=== PATIENT | female | born 1955 | race Caucasian/White ===

== ENCOUNTER → 2016-12-21 | Outpatient (CLI) | payer BC | LOC: FIMAGING 07:16 | DX: Z12.31 Encounter for screening mammogram for malignant neoplasm of breast (principal); N85.9 Noninflammatory disorder of uterus, unspecified; D25.2 Subserosal leiomyoma of uterus | CPT/HCPCS: G0202 ==

== ENCOUNTER → 2017-08-30 | Outpatient (CLI) | payer BC ==
[~2017-08-30] MED LIST: REGADENOSON 0.4 MG/5 ML SYR IVP ONE
--- NOTE | 2017-08-31 00:30 | CPR ---
[f rep st] NONINVASIVE CARDIAC PROCEDURE REPORT Lexiscan injection of Lexiscan MPI study INDICATION FOR STRESS TESTING: Testing, shortness of breath, abnormal electrocardiogram, unable to r un on treadmill, paroxysmal atrial fibrillation, and presurgical evaluation. PRE: After obtaining informed consent, ensuring patient's n.p.o. status of caffeine for greater than 12 hours, the patient was placed on electrocardiogram, showing sinus bradycardia with ventricular ra te of 56 beats per minute, normal axis, nonspecific T-wave abnormalities noted in lateral leads. Pat ient denies of chest pain, shortness of breath, or symptoms suggesting of ischemia. Blood pressure w as 122/70, saturation 98%. INJECTION: Patient was given Lexiscan slow IV push, followed by nuclear isotope. Patient did report within 1 minute of injection of mild shortness of breath with chest pressure. Patient was noted to have mild T-wave inversion within 3 minutes in V4 through V6. She was given caffeinated beverage, an d symptoms did subside. Vital signs remained stable. Within 5 minutes post injection, all symptoms subsided, her vital signs remained stable. EKG returned to baseline. IMPRESSION: A 61-year-old female being evaluated for total hip, noted to have abnormal electrocardio gram and found to be in paroxysmal atrial fibrillation during her next office visit to Cardiology. T conchis, has converted back to sinus rhythm, noted to have nonspecific T-wave abnormalities in lateral l adelina. With Lexiscan injection, noted T-wave inversion in V3 through 6 within 3 minutes, which return ed back to normal. Patient did report some mild chest pressure with injection, but did subside. Cur rently, her vital signs are stable, reporting no symptoms suggesting cardiac ischemia. Final blood p ressure is 108/62, heart rate 79, saturation 96%. She will finish poststress imaging in [facility] at this time. /[id number]/MODL
== END ==
LOC: FIMAGING 12:42
PROVIDERS: ATTEND Nurse Practitioner Family
DX: R06.02 Shortness of breath (principal); R94.39 Abnormal result of other cardiovascular function study
CPT/HCPCS: J2785

== ENCOUNTER → 2017-09-03 | Outpatient (CLI) | payer BC | LOC: FIMAGING 08:48 | PROVIDERS: ATTEND Orthopaedic Surgery | DX: Z01.818 Encounter for other preprocedural examination (principal); M16.11 Unilateral primary osteoarthritis, right hip; M25.551 Pain in right hip ==

== ENCOUNTER 2017-09-13 05:52 | Inpatient (IN) | payer BC ==
[~2017-09-13 05:52] MED LIST changes: +ACETAMINOPHEN 325 MG TAB PO ONE; +DEXAMETHASONE 4 MG/ML VIAL IVP ONE; +FAMOTIDINE 20 MG TAB PO ONE; +POVIDONE-IODINE 20 ML in SODIUM CL IRRIG SOLUTION 500 ML IRR ONE; -REGADENOSON 0.4 MG/5 ML SYR IVP ONE; +ROPIVACAINE 0.2% 80 MG, EPINEPHrine 0.2 MG, KETOROLAC TROMETHAMINE 30 MG in SYRINGE 0 ML IU ONE; +TRANEXAMIC ACID 1,000 MG in NS 100 ML IV ONE; +ceFAZolin 2 GM/SWFI 2 GM/20 ML SYR IVP ONE
[2017-09-13] MEDS ORDERED: POVIDONE-IODINE 20 ML in SODIUM CL IRRIG SOLUTION 500 ML IRR ONE (06:00)
[2017-09-13] MEDS ORDERED: ROPIVACAINE 0.2% 80 MG, EPINEPHrine 0.2 MG, KETOROLAC TROMETHAMINE 30 MG in SYRINGE 0 ML IU ONE (06:00)
[2017-09-13] MEDS ORDERED: TRANEXAMIC ACID 1,000 MG in NS 100 ML IV ONE (06:00)
[2017-09-13] MEDS ORDERED: FAMOTIDINE 20 MG TAB PO ONE (06:10)
[2017-09-13] MEDS ORDERED: DEXAMETHASONE 4 MG/ML VIAL IVP ONE (06:10)
[2017-09-13] MEDS ORDERED: ACETAMINOPHEN 325 MG TAB PO ONE (06:10)
[2017-09-13] MEDS ORDERED: ceFAZolin 2 GM/SWFI 2 GM/20 ML SYR IVP ONE (06:10)
[2017-09-13] MEDS ORDERED: LR 1,000 ML IV ONE (06:14)
[2017-09-13] MEDS ORDERED: BUPIVACAINE 0.5% 30 ML SDV ONE (06:54)
[2017-09-13] MEDS ORDERED: BACITRACIN 50,000 UNITS/10 ML SYR IRR ONE (06:56)
[2017-09-13] MEDS ORDERED: POLYMYXIN B SULFATE 500,000 UNIT/10 ML SYR IRR ONE (06:56)
--- NOTE | 2017-09-13 07:06 | PDHPUP ---
History & Physical Update H&P update statement: This history and physical update is based on an assessment of the patient which was completed after admission or registration (within 24 hours), but prior to the surgery/procedure. H&P update: H&P reviewed & patient examined, no change in patient's condition since H&P completed
--- NOTE | 2017-09-13 07:15 | PDANEPAE ---
ANE History of Present Illness djd R hip s/f R AMA ANE Past Medical History - Cardiovascular History Hx Hypertension: Yes Hx Arrhythmias: Yes Hx Chest Pain: No Hx Coronary Artery / Peripheral Vascular Disease: No Hx CHF / Valvular Disease: No Hx Palpitations: No Cardiovascular History Comment: pt to see cards 08/30 &. a-fib, new onset. ECHO normal. A-fib stable on metoprolol. 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 - Neurologic History Hx Cerebrovascular Accident: No Hx Seizures: No Hx Dementia: No - Endocrine History Hx Diabetes: No - Renal History Hx Renal Disorders: No - Liver History Hx Hepatic Disorders: No - Neurological & Psychiatric Hx Hx Neurological and Psychiatric Disorders: Yes Neurological / Psychiatric History Comment: depression - Cancer History Hx Cancer: Yes Cancer History Comment: skin cancer - Congenital Disorder History Hx Congenital Disorders: Yes Congenital History Comment: benign familial tremor - GI History Hx Gastrointestinal Disorders: Yes Gastrointestinal History Comment: reflux,barretts esophagus - Chronic Pain History Chronic Pain: Yes (R shoulder and neck spasms) - Surgical History Prior Surgeries: cervix opening sx. colonoscopy and EGD ANE Review of Systems Review of Systems: - Exercise capacity METS (RN): 4 METS ANE Patient History - Allergies Allergies/Adverse Reactions: codeine [Codeine] Allergy (Verified 08/20/17 16:02) Vomiting Sulfa (Sulfonamide Antibiotics) Allergy (Verified 08/20/17 16:02) Depression Anesthetics - Amide Type Adverse Reaction (Mild, Verified 09/13/17 07:14) Loss short term memory for ~3 mon - Home Medications Home Medications: Compounded T3/T4 5/20mcg 1 ea PO DAILY@08/20/17 [Last Taken Unknown] Diazepam [Valium 5 MG (*)] 5 mg PO DAILY PRN 08/20/17 [Last Taken Unknown] Glucosamine Sulfate [Glucosamine Sulfate 500 MG (*)] 500 mg PO DAILY@ [Last Taken Unknown] Herbals/Supplements -Info Only 1 ea PO DAILY 08/20/17 [Last Taken Unknown] Ibuprofen [Motrin (*)] 600 mg PO HS PRN 08/20/17 [Last Taken Unknown] Magnesium Carb/Aluminum Hydrox [Gaviscon Es Tablet Chew] 1 each PO DAILY PRN 01/01 [Last Taken Unknown] Progesterone 150mg 150 mg PO HS 08/20/17 [Last Taken Unknown] Progesterone 50mg 50 mg PO DAILY@06 08/20/17 [Last Taken Unknown] Propranolol HCl [Inderal 10mg (*)] 10 mg PO HS 08/20/17 [Last Taken Unknown] Testosterone 1mg 1 mg PO DAILY@,08/20/17 [Last Taken Unknown] Vilazodone HCl [Viibryd] 30 mg PO DAILY 08/20/17 [Last Taken Unknown] Zaleplon [Sonata] 10 mg PO HS PRN 08/20/17 [Last Taken Unknown] buPROPion SR [Wellbutrin 150mg SR (*)] 150 mg PO DAILY 08/20/17 [Last Taken Unknown] - NPO status NPO Status: no food or drink >8 hours NPO Since - Liquids (Date): 09/13/17 NPO Since - Liquids (Time): 04:30 NPO Since - Solids (Date): 09/12/17 NPO Since - Solids (Time): 17:30 - Anes Hx Anes Hx: post operative cognitive dysfunction (propofol okay) - Smoking Hx Smoking Status: Former smoker Marijuana use: No - Alcohol Use Alcohol Use: Occasionally - Family Anes Hx Family Anes Hx: none Family Hx Anesthesia Complications: none ANE Labs/Vital Signs - Labs - CBC WBC: reviewed and okay - Vital Signs Blood Pressure: 96/58 Heart Rate: 55 Respiratory Rate: 14 O2 Sat (%): 94 Height: 167.64 cm Weight: 71.214 kg ANE Physical Exam - Airway Neck exam: FROM Mallampati Score: Class 2 Mouth exam: normal dental/mouth exam - Cardiovascular Cardiovascular: regular rate and rhythym - ASA Status ASA Status: III ANE Anesthesia Plan Anesthesia Plan: MAC, spinal
[2017-09-13] MEDS ORDERED: fentaNYL 100 MCG/2 ML INJ ONE ×2 (07:32→11:08)
[2017-09-13] MEDS ORDERED: PROPOFOL/EMULSION 500 MG/50 ML BOTTLE IV ONE ×3 (07:36→09:05)
[2017-09-13] MEDS ORDERED: DEXAMETHASONE 4 MG/ML VIAL ONE (07:47)
[2017-09-13] MEDS ORDERED: PHENYLEPHRINE HCL 100 MCG/ML SYR ONE (08:11)
[2017-09-13] MEDS ORDERED: PROPOFOL 200 MG/20 ML VIAL ONE ×3 (09:52→10:40)
[2017-09-13] MEDS ORDERED: BISACODYL 10 MG SUPP PR PRN (11:03)
[2017-09-13] MEDS ORDERED: LACTULOSE 20 GM/30 ML UDCUP PO PRN (11:03)
[2017-09-13] MEDS ORDERED: ONDANSETRON DISINTEGRATING 4 MG TAB PO PRN (11:03)
[2017-09-13] MEDS ORDERED: TEMAZEPAM 15 MG CAP PO PRN (11:03)
[2017-09-13] MEDS ORDERED: POLYETHYLENE GLYCOL 3350 17 GM PKT PO PRN (11:03)
[2017-09-13] MEDS ORDERED: MAGNESIUM HYDROXIDE 30 ML UDCUP PO PRN (11:03)
[2017-09-13] MEDS ORDERED: CYCLOBENZAPRINE 10 MG TAB PO PRN (11:03)
[2017-09-13] MEDS ORDERED: DIPHENOXYLATE/ATROPINE LOMOTIL 1 TAB PO PRN (11:03)
[2017-09-13] MEDS ORDERED: ALBUTEROL 3 ML DEYVIAL IH PRN (11:05)
[2017-09-13] MEDS ORDERED: PROMETHAZINE HCL 25 MG/ML INJ IVP PRN (11:05)
[2017-09-13] MEDS ORDERED: ACETAMINOPHEN 500 MG TAB PO PRN (11:05)
[2017-09-13] MEDS ORDERED: NALOXONE HCL 0.4 MG/ML INJ IVP PRN (11:05)
[2017-09-13] MEDS ORDERED: DEXAMETHASONE 4 MG/ML VIAL IVP PRN (11:05)
[2017-09-13] MEDS ORDERED: HYDROmorphONE/DILAUDID 1 MG/ML INJ IVP PRN (11:05)
[2017-09-13] MEDS ORDERED: PHENYLEPHRINE HCL 100 MCG/ML SYR IVP PRN (11:05)
[2017-09-13] MEDS ORDERED: ONDANSETRON 4 MG/2 ML VIAL IVP PRN (11:05)
[2017-09-13] MEDS ORDERED: MEPERIDINE 25 MG/ML SYR IVP PRN (11:05)
[2017-09-13] MEDS ORDERED: HYDROCODONE/APAP 5/325 TAB PO PRN (11:05)
[2017-09-13] MEDS ORDERED: OXYCODONE/APAP 5/325 TAB PO PRN (11:05)
[2017-09-13] MEDS ORDERED: LABETALOL HCL 5 MG/ML 20 ML MDV IVP PRN (11:05)
[2017-09-13] MEDS ORDERED: LR 500 ML IV PRN (11:05)
[2017-09-13] MEDS ORDERED: METOCLOPRAMIDE 10 MG/2 ML VIAL IVP PRN (11:05)
--- NOTE | 2017-09-13 11:06 | POSTANESTH ---
Post Anesthetic Evaluation Cardiovascular Status: Normal, Stable Respiratory Status: Normal, Stable Level of Consciousness/Mental Status: Can Participate in Eval Pain Control: Adequate, Prn Tx Ordered Nausea/Vomiting Control: Adequate, Prn Tx Ordered Complications Possibly Related to Anesthesia: None Noted
[2017-09-13] MEDS ORDERED: DIAZEPAM 5 MG TAB PO PRN (11:08)
[2017-09-13] MEDS ORDERED: MAGNESIUM CARB PO PRN (11:08)
[2017-09-13] MEDS ORDERED: ZALEPLON 10 MG PO PRN (11:08)
[2017-09-13] MEDS ORDERED: [UNRECOGNIZED DRUG - OTHER] PO PRN (11:08)
[2017-09-13] MEDS ORDERED: ALUMINUM HYDROX PO PRN (11:08)
[2017-09-13] MEDS: fentaNYL 100 MCG/2 ML INJ IVP PRN ×2 (11:10→11:35)
[2017-09-13] MEDS ORDERED: HYDROCODONE/APAP 10/325 TAB PO PRN (11:11)
--- NOTE | 2017-09-13 11:14 | POSTOPPROG ---
Post Op Note Date of Operation: 09/13/17 Surgeon: Jonn Jensen Drying Machine Back Tender: Jonel Fernandez CSA Anesthesiologist: Alex Flood MD Anesthesia: Spinal Pre-op Diagnosis: R hip OA Post-op Diagnosis: same Procedure: R anterior AMA with LESLYE Inf/Abcess present in the surg proc area at time of surgery?: No EBL: 100-500 (250) Drains: Hemovac
[2017-09-13] MEDS ORDERED: TESTOSTERONE 1 MG PO SCH (12:00)
[2017-09-13] MEDS: ACETAMINOPHEN 325 MG TAB PO SCH ×3 (13:48→23:59)
[2017-09-13] MEDS: GLUCOSAMINE SULF 500 MG CAP PO SCH (13:49)
[2017-09-13] MEDS: [UNRECOGNIZED DRUG - MIXTURE] PO SCH (14:24)
[2017-09-13] MEDS: (Vilazodone Hcl [Viibryd] 20 MG) PO SCH (14:24)
[2017-09-13] MEDS: PROGESTERONE PO SCH (14:24)
[2017-09-13] MEDS: ceFAZolin 2 GM/DEXTROSE 100 ML IV SCH ×2 (14:33→21:38)
[2017-09-13] MEDS: LR 1,000 ML IV SCH ×2 (14:33→21:38)
[2017-09-13] MEDS: HYDROCODONE/APAP 10/325 TAB PO PRN ×2 (16:01→21:40)
[2017-09-13] MEDS: oxyCODONE IR 5 MG TAB PO PRN ×3 (19:16→23:59)
[2017-09-13] MEDS ORDERED: METOPROLOL SUCCINATE XR 25 MG TAB PO SCH (21:00)
[2017-09-13] MEDS ORDERED: PROGESTERONE 150 MG PO SCH (21:00)
[2017-09-13] MEDS ORDERED: METOPROLOL TARTRATE 37.5 MG PO SCH (21:00)
[2017-09-13] MEDS ORDERED: PROPRANOLOL HCL 10 MG TAB PO SCH (21:00)
[2017-09-13] MEDS ORDERED: TRIAZOLAM 0.25 MG TAB PO SCH (21:00)
--- NOTE | 2017-09-13 21:25 | GOP ---
[f rep st] OPERATIVE REPORT DATE OF OPERATION: 09/13/2017 SURGEON: Jonn Jensen MD AIR BRUSH OPERATOR: Jonel Fernandez, CSFA, LSA. Labor Custodian was required for the procedure due to complexity of the case, patient positioning, prepping and draping, retraction and closure. ANESTHESIA: Spinal. PREOPERATIVE DIAGNOSIS: Right hip osteoarthritis. POSTOPERATIVE DIAGNOSIS: Right hip osteoarthritis. PROCEDURE PERFORMED: Right hip anterior approach hip replacement with MAKOplasty robotic guidance, f luoroscopic supervision greater than 1 hour. FINDINGS: SPECIMENS: None. ESTIMATED BLOOD LOSS: 250 cc. INDICATIONS: Patient has severe hip osteoarthritis that failed to improve with conservative manageme nt significantly affecting the activities of daily living including walking. The patient elected to p roceed with anterior approach hip replacement using MAKOplasty robotic guidance after extensive discu ssion of all possible approaches as well as risks, benefits, pros, cons, expected recovery and progno sis. The patient verbalized an understanding of the risks and benefits of the procedure and signed h er informed consent prior to the procedure. DESCRIPTION OF PROCEDURE: Patient was seen in the holding area and operative consent and extremity w as signed. Patient was then taken to the operating room and after smooth induction of general anesth esia, patient was placed in supine position on the Steris fracture table. Hip and contralateral richy c crest were prepped and draped in the usual sterile fashion. The operative site was confirmed by si gnature. Operative time-out performed. Allergies reviewed. Antibiotics and TXA administered. Three pins were placed in the contralateral iliac crest and the femoral array was fixed. It was well visualized by the robot. The desired incision for the anterior approach on the hip was infiltrated with 0.25% Marcaine with epinephrine. The incision was made with a 10 blade, carried through subcuta neous tissue to identify the TFL fascia. This was incised in line with the incision and the TFL was retracted laterally. The lateral femoral circumflex vessels were coagulated with Aquamantys. The de ep TFL fascia was incised and the vastus lateralis was clearly exposed. The pericapsular fat was exc ised. A T-shaped capsulotomy was performed and the capsule was preserved for later closure. A femoral array screw was fixed into the greater trochanter as was the checkpoint for the femur. Fem oral registration was performed using the robot. Femoral neck cut was then performed under robotic g uidance. Femoral neck was excised with corkscrew. The acetabulum was exposed in standard fashion. The labrum and pulp and soft tissue were exposed, ex cised sharply. Pelvic checkpoint was placed in the AIIS. Acetabular registration was performed usin g the robot. Reaming was then performed using the robot to the desired size. The cup was impacted i nto place again with robotic guidance system. Good fixation was achieved. The cup was irrigated and dried, and the liner was impacted into place achieving good locking within the cup. The femur was t hen exposed in the standard fashion. The femur was broached to the desired size. The trial neck and head were attached and the hip was relocated. Length and offset were confirmed using the robot. Po sition of all components was also confirmed at this point, fluoroscopically. The hip was dislocated and the femoral trial components were removed. The stem was impacted into place. The trunnion was c leaned and dried and the head was impacted down onto the trunnion. The wound was copiously irrigated including the cup with pulse lavage and the hip was once again relocated and final numbers for lengt h and offset were taken using the robot. Component placement was confirmed with fluoroscopy. All ch eckpoints and the femoral array screw were removed. The pelvic array was also removed. The wound wa s copiously irrigated with sterile solution. Capsule was repaired with #1 Vicryl. Indirect head of the rectus femoris was also repaired with #1 Vicryl sutures. A drain was placed exiting distally and laterally from deep to TFL. The wound was then closed in layers with barbed 0 PDS in the TFL fascia , 2-0 Stratafix in the deep subcutaneous fat, 3-0 Versalok in the dermis. The wound was then dressed with Dermabond, Steri-Strips, and a silver dressing. The patient was then safely awakened and taken to Recovery in stable condition. All critical portions of the procedure were performed by myself, Olga Jensen. The operative note was created by myself, Dr. Jensen. I was immediately available for emerge ncy cross-coverage at all times. DRAINS: Hemovac x1. COMPLICATIONS: None. IMPLANTS: Tritanium size 52 acetabular shell with a neutral 0-degree polyethylene liner, Accolade II size-4 stem, 127-degree offset, 32 mm +0 head. /[id number]/MODL
[2017-09-13] MEDS: FAMOTIDINE 20 MG TAB PO SCH (21:39)
[2017-09-13] MEDS: SENNOSIDES/DOCUSATE SODIUM TAB PO SCH (21:44)
[2017-09-14] MEDS: HYDROCODONE/APAP 10/325 TAB PO PRN ×2 (04:18→10:20)
[2017-09-14] MEDS: ACETAMINOPHEN 325 MG TAB PO SCH ×2 (04:23→13:18)
[2017-09-14] MEDS: LR 1,000 ML IV SCH (05:54)
[2017-09-14] MEDS: oxyCODONE IR 5 MG TAB PO PRN ×2 (05:56→13:17)
[2017-09-14] MEDS: [UNRECOGNIZED DRUG - MIXTURE] PO SCH (05:57)
[2017-09-14] MEDS ORDERED: Pentosan Polysulfate Sodium [Elmiron] 100 MG PO SCH (06:00)
[2017-09-14] MEDS ORDERED: TESTOSTERONE 1 MG PO SCH (06:00)
[2017-09-14] MEDS: PROGESTERONE PO SCH (06:00)
[2017-09-14] MEDS: (Vilazodone Hcl [Viibryd] 20 MG) PO SCH (06:03)
[2017-09-14] MEDS ORDERED: ESTRADIOL VIVELLE 0.05 MG PATCH TD SCH (08:00)
[2017-09-14] MEDS ORDERED: ENOXAPARIN 40 MG/0.4 ML SYR SC SCH (09:00)
[2017-09-14] MEDS ORDERED: buPROPion SR 150 MG TAB PO SCH (09:00)
--- NOTE | 2017-09-14 09:02 | ASMTCMCOM ---
CM Note CM Note Notes: 09/14/2017 Case Management Note Reviewed chart. There are no case management d/c needs identified at this time d/t pt age, employment status, marital status and activity levels prior to admission. PT is recommending outpatient rehab. Case Management d/c poc: anticipating home independent with follow up as directed. Case Management available if needs change. Date Signed: 09/14/2017 09:02 AM Electronically Signed By:Gisele Tidwell RN
[2017-09-14] MEDS: SENNOSIDES/DOCUSATE SODIUM TAB PO SCH (10:21)
[2017-09-14] MEDS: FAMOTIDINE 20 MG TAB PO SCH (10:21)
--- NOTE | 2017-09-14 11:45 | SOAPPROG ---
SOAP Progress Note Assessment/Plan: Assessment: Postop day 1 status post right anterior approach total hip arthroplasty with MAKOplasty robotic guidance Plan: Weight-bearing as tolerated with assistance, PT/ OT Lovenox 40 mg daily x4 weeks for DVT prophylaxis Oxycodone for pain control Incentive spirometry 10 times per hour Disposition: Home today 09/14/17 11:41 Subjective: Patient required increased analgesic medication yesterday evening and overnight. Pain has been well controlled with hydro and oxycodone. Denies fevers chills nausea vomiting chest pain shortness of breath numbness tingling weakness. Complains of mild ankle soreness. Ambulated well with PT, did stairs Objective: Vital Signs Temp Pulse Resp BP Pulse Ox 36.8 C 55 L 15 86/53 L 94 09/14/17 08:00 09/14/17 08:00 09/14/17 08:00 09/14/17 09:00 09/14/17 08:00 Laboratory Results 09/14/17 04:36 09/13/17 09/14/17 09/15/17 05:59 05:59 05:59 Intake Total 2410 1950 Output Total 3100 300 Balance -690 1650 Alert not oriented x3, no acute distress Right lower extremity and left pelvis dressings clean dry intact no erythremia drainage or signs of infection Mild swelling and erythema Compartments soft and compressible Calves nontender not swollen Sensation intact to light touch from L3-S1 Motor intact to EHL FHL tibialis anterior gastrocsoleus Palpable DP, PT - Time Spent With Patient Time Spent With Patient: 15 - Pending Discharge Pending Discharge Within 24 Hours: Yes Pending Discharge Date: 09/14/17 Pending Discharge Time: 13:00 ICD10 Worksheet Patient Problems: Problems Problem Status Onset Osteoarthritis of right hip Acute
[2017-09-14 11:47] VITALS: BP 88/51; PULSE 64; RESP 16; TEMP 98.4
[2017-09-14 11:50] VITALS: O2SAT 97
--- NOTE | 2017-09-14 12:27 | GDS ---
[f rep st] DISCHARGE SUMMARY ADMITTING DIAGNOSIS: Right hip osteoarthritis. DISCHARGE DIAGNOSIS: Right hip osteoarthritis. PROCEDURE PERFORMED: Right anterior approach total hip arthroplasty with LESLYE robotic guidance. HOSPITAL COURSE: The patient underwent the above procedure on the admission date and tolerated the p rocedure well. Initially, she did have some increased pain postoperatively and required additional p ain medication. However, on postoperative day 1, her pain was much more well controlled and she part icipated in physical therapy, including stairs. She received perioperative antibiotics and Lovenox f or DVT prophylaxis. Physical therapy deemed her safe for discharge home, which the patient agreed wi . DISCHARGE INSTRUCTIONS: Discharge instructions were provided to the patient and she voiced yassinean naheed. Questions were answered. FOLLOWUP: 2 weeks. CONDITION ON DISCHARGE: Stable. DISPOSITION: Home. /[id number]/MODL
[2017-09-14] MEDS: GLUCOSAMINE SULF 500 MG CAP PO SCH (13:18)
--- NOTE | 2017-09-14 14:49 | ASDISCHSUM ---
Discharge Information Plan Status:Home with No Needs Medically Cleared to Leave: Discharge Date:09/14/2017 01:54 PM CM D/C Disposition:Home, Routine, Self-Care ADT D/C Disposition:Home, Routine, Self-Care Projected Discharge Date:09/14/2017 01:54 PM Transportation at D/C:Family Discharge Delay Reason: Follow-Up Date:09/14/2017 01:54 PM Discharge Slot: Final Diagnosis: Placement Information Patient Contact Information Contact Name:MARQUEZ Relationship: Address:[address]:[place] Alternate Phone: [facility]/Zip Code:[place] [address] Email: Financial Information Financial Class:HMO and PPO Plans Primary Plan Desc: OUT OF STATE PPO Primary Plan Number:[id number] Secondary Plan Desc: Secondary Plan Number: Assessment Information [facility] CM Progress Note CM Note CM Note Notes: 09/14/2017 Case Management Note Reviewed chart. There are no case management d/c needs identified at this time d/t pt age, employment status, marital status and activity levels prior to admission. PT is recommending outpatient rehab. Case Management d/c poc: anticipating home independent with follow up as directed. Case Management available if needs change. Date Signed: 09/14/2017 09:02 AM Electronically Signed By:Gisele Tidwell RN Intervention Information
[2017-09-14] MEDS ORDERED: TRIAZOLAM 0.25 MG TAB PO SCH (21:00)
[2017-09-15] MEDS ORDERED: TESTOSTERONE 1 MG PO SCH (06:00)
== END 2017-09-14 13:54 | disposition home or self-care (01) | DRG 470 ==
LOC: F3N 05:52
PROVIDERS: ADMIT Orthopaedic Surgery; ATTEND Orthopaedic Surgery
DX: M16.11 Unilateral primary osteoarthritis, right hip (principal); I10 Essential (primary) hypertension; Z87.891 Personal history of nicotine dependence
CPT/HCPCS: 97116-GP; 97161-GP; 97165-GO; 97530-GP; J0171; J0690; J1100; J1650; J1885; J2370; J2704; J2795; J3010

== ENCOUNTER 2017-12-23 16:32 | Emergency (ER) | payer BC ==
--- NOTE | 2017-12-23 16:49 | CPEKG ---
Heart Rate: 115 RR Interval: 522 QRSD Interval: 92 QT Interval: 348 QTC Interval: 482 QRS [place]: 48 EKG Severity - ABNORMAL ECG - EKG Impression: ATRIAL FIBRILLATION EKG Impression: VENTRICULAR BIGEMINY Electronically Signed By: Jared Nguyen 23-Dec-2017 19:07:56
--- NOTE | 2017-12-23 16:55 | EDPHY ---
H & P Stated Complaint: afib/chest pressure since this morning Time Seen by Provider: 12/23/17 16:52 HPI/ROS: CHIEF COMPLAINT: Palpitations HISTORY OF PRESENT ILLNESS: The patient presents the ED with complaints of palpitations for the past day. The patient has a history of paroxysmal atrial fibrillation is currently wearing a Holter monitor. The patient is currently taking Rythmol metoprolol. She has not yet taking his medications today. The patient denies any chest pain. She has been having symptoms of gastroesophageal reflux disease. She denies asymmetric calf pain or swelling. The patient has been otherwise doing well. She did have a history of a hip replacement in August. She was noted to have atrial fibrillation prior to that procedure. REVIEW OF SYSTEMS: A comprehensive 10 point review of systems is otherwise negative aside from elements mentioned in the history of present illness. Source: Patient Exam Limitations: No limitations - Personal History Current Tetanus/Diphtheria Vaccine: Unsure - Medical/Surgical History Hx Asthma: No Hx Chronic Respiratory Disease: No Hx Diabetes: No Hx Cardiac Disease: Yes Hx Renal Disease: No Hx Cirrhosis: No Hx Alcoholism: No Hx HIV/AIDS: No Hx Splenectomy or Spleen Trauma: No Other PMH: atrial fib,TMJ.interstitial systitis,reflux, neck C7 herniation - Social History Smoking Status: Former smoker - Physical Exam Exam: General Appearance: Alert, no distress Eyes: Pupils equal and round no pallor or injection ENT, Mouth: Mucous membranes moist Respiratory: There are no retractions, lungs are clear to auscultation Cardiovascular: Tachycardic, irregular Gastrointestinal: Abdomen is soft and nontender, no masses, bowel sounds normal Neurological: A&O, normal motor function, normal sensory exam, normal cranial nerves Skin: Warm and dry, no rashes Musculoskeletal: Neck is supple nontender Extremities: symmetrical, full range of motion Constitutional: Initial Vital Signs Temperature (C) 36.7 C 12/23/17 16:40 Heart Rate 122 H 12/23/17 16:40 Respiratory Rate 20 12/23/17 16:40 Blood Pressure 117/82 H 12/23/17 16:40 O2 Sat (%) 95 12/23/17 16:40 O2 Delivery Mode Room Air Allergies/Adverse Reactions: Anesthetics - Amide Type Allergy (Mild, Verified 12/23/17 16:37) Loss short term memory for ~3 mon codeine [Codeine] Allergy (Verified 12/23/17 16:37) Vomiting Sulfa (Sulfonamide Antibiotics) Allergy (Verified 12/23/17 16:37) Depression others unknown Allergy (Uncoded 12/23/17 16:38) Home Medications: Medication Instructions Recorded Compounded T3/T4 5/20mcg 1 ea PO DAILY@08/20/17 Progesterone 150mg 150 mg PO HS 08/20/17 Progesterone 50mg 50 mg PO DAILY@08/20/17 RX: Diazepam [Valium 5 MG (*)] 5 mg PO DAILY PRN 08/20/17 RX: Glucosamine Sulfate 500 mg PO DAILY@08/20/17 [Glucosamine Sulfate 500 MG (*)] RX: Herbals/Supplements -Info Only 1 ea PO DAILY 08/20/17 RX: Magnesium Carb/Aluminum Hydrox 1 each PO DAILY PRN 08/20/17 [Gaviscon Es Tablet Chew] RX: Vilazodone HCl [Viibryd] 30 mg PO DAILY 08/20/17 RX: Zaleplon [Sonata] 10 mg PO HS PRN 08/20/17 RX: buPROPion SR [Wellbutrin 150mg 150 mg PO DAILY 08/20/17 SR (*)] Testosterone 1mg 1 mg PO DAILY@08/20/17 RX: Estradiol [Vivelle-Dot 0.05MG 0.05 mg TD TuFr@0800 09/13/17 (*)] RX: Metoprolol Succinate Xr 37.5 mg PO HS 09/13/17 [Toprol Xl 25 mg (*)] RX: Pentosan Polysulfate Sodium 100 mg PO DAILY06 09/13/17 [ELMIRON] RX: Triazolam [Halcion 0.25MG (*)] 0.25 mg PO HSMR1 09/13/17 RX: Pentosan Polysulfate Sodium 100 mg PO DAILY PRN 09/14/17 [ELMIRON] Rythmol 150mg (*) 12/23/17 Medical Decision Making - Diagnostics EKG Interpretation: EKG: Complete interpretation has been separately recorded in the [facility] archive. Summary impression: Atrial fibrillation, rate 115 ED Course/Re-evaluation: The patient was given her regular dose of Rythmol and metoprolol in the emergency department. She was observed on a minibus driver with improvement of her rate into the 90-100 range. I did review her case with her regular color grinder Dr. Rooney. She is scheduled to see him in follow-up this week. At this point time he recommends no modifications to her medical management. He will discuss with her potentially performing ablation. She does have a history of having fairly significant pauses following her conversion to a sinus rhythm. Differential Diagnosis: Differential diagnosis considered includes atrial fibrillation with rapid ventricular response, metabolic abnormality, dehydration, acute coronary syndrome - Data Points Laboratory Results: Laboratory Results 12/23/17 16:45 12/23/17 16:45 12/23/17 12/23/17 16:45 16:45 WBC 6.29 10^3/uL 10^3/uL (3.80-9.50) RBC 4.18 10^6/uL 10^6/uL (4.18-5.33) Hgb 14.2 g/dL g/dL (12.6-16.3) Hct 42.8 % % (38.0-47.0) MCV 102.4 fL H fL (81.5-99.8) MCH 34.0 pg pg (27.9-34.1) MCHC 33.2 g/dL g/dL (32.4-36.7) RDW 14.2 % % (11.5-15.2) Plt Count 185 10^3/uL 10^3/uL (150-400) MPV 10.0 fL fL (8.7-11.7) Neut % (Auto) 59.9 % % (39.3-74.2) Lymph % (Auto) 29.6 % % (15.0-45.0) [place] % (Auto) 7.6 % % (4.5-13.0) Eos % (Auto) 1.4 % % (0.6-7.6) Baso % (Auto) 1.0 % % (0.3-1.7) Nucleat RBC Rel Count 0.0 % % (0.0-0.2) Absolute Neuts (auto) 3.77 10^3/uL 10^3/uL (1.70-6.50) Absolute Lymphs (auto) 1.86 10^3/uL 10^3/uL (1.00-3.00) Absolute Monos (auto) 0.48 10^3/uL 10^3/uL (0.30-0.80) Absolute Eos (auto) 0.09 10^3/uL 10^3/uL (0.03-0.40) Absolute Basos (auto) 0.06 10^3/uL 10^3/uL (0.02-0.10) Absolute Nucleated RBC 0.00 10^3/uL 10^3/uL (0-0.01) Immature Gran % 0.5 % % (0.0-1.1) Immature Gran # 0.03 10^3/uL 10^3/uL (0.00-0.10) Sodium 141 mEq/L mEq/L (135-145) Potassium 4.3 mEq/L mEq/L (3.5-5.2) Chloride 102 mEq/L mEq/L (97-110) Carbon Dioxide 26 mEq/l mEq/l (22-31) Anion Gap 13 mEq/L mEq/L (8-16) BUN 16 mg/dL mg/dL (7-23) Creatinine 0.9 mg/dL mg/dL (0.6-1.0) Estimated GFR > 60 Glucose 97 mg/dL mg/dL (70-100) Calcium 9.9 mg/dL mg/dL (8.5-10.4) Troponin I < 0.012 ng/mL ng/mL (0.000-0.034) Medications Given: Discontinued Medications Metoprolol Tartrate (Lopressor) 25 mg PO EDNOW ONE Stop: 12/23/17 17:11 Last Admin: 12/23/17 17:15 Dose: 25 mg Propafenone HCl (Rythmol) 225 mg PO EDNOW ONE Stop: 12/23/17 17:10 Last Admin: 12/23/17 17:33 Dose: 225 mg Departure - Departure Disposition: Home, Routine, Self-Care Clinical Impression: Atrial fibrillation Condition: Good Instructions: A-fib (Atrial Fibrillation) (ED) Additional Instructions: 1. Please continue your regular medications for atrial fibrillation. 2. Please follow up this week with Dr. Rooney. 3. Please contact Dr. Rooney if you continue to have a persistently elevated heart rate. 4. Return to the ED for heart rate persistently greater than 120-140, chest pain , shortness of breath or other concerns.
[2017-12-23] MEDS ORDERED: PROPAFENONE HCL 150 MG TAB PO ONE (17:09)
[2017-12-23] MEDS ORDERED: METOPROLOL TARTRATE 25 MG TAB PO ONE (17:10)
[2017-12-23 17:18] LABS: PLATELET COUNT 185 10^3/uL (150-400)
[2017-12-23 19:07] VITALS: BP 97/83
== END 2017-12-23 19:05 | disposition home or self-care (01) ==
DX: I48.91 Unspecified atrial fibrillation (principal); Z87.891 Personal history of nicotine dependence

== ENCOUNTER → 2018-05-06 | Outpatient (CLI) | payer BC ==
[~2018-05-06] MED LIST changes: -ACETAMINOPHEN 325 MG TAB PO ONE; -DEXAMETHASONE 4 MG/ML VIAL IVP ONE; -FAMOTIDINE 20 MG TAB PO ONE; +IOPAMIDOL (ISOVUE 370) 100 ML BTL IV ONE; -POVIDONE-IODINE 20 ML in SODIUM CL IRRIG SOLUTION 500 ML IRR ONE; -ROPIVACAINE 0.2% 80 MG, EPINEPHrine 0.2 MG, KETOROLAC TROMETHAMINE 30 MG in SYRINGE 0 ML IU ONE; -TRANEXAMIC ACID 1,000 MG in NS 100 ML IV ONE; -ceFAZolin 2 GM/SWFI 2 GM/20 ML SYR IVP ONE
== END ==
LOC: FIMAGING 09:34
PROVIDERS: ATTEND Internal Medicine Cardiovascular Disease
DX: I48.91 Unspecified atrial fibrillation (principal)
CPT/HCPCS: Q9967

== ENCOUNTER 2018-05-14 07:14 | Observation (INO) | payer BC ==
[2018-05-14] MEDS ORDERED: NS 1,000 ML IV ONE (07:16)
[2018-05-14 08:02] LABS: PLATELET COUNT 172 10^3/uL (150-400)
[2018-05-14 08:11] LABS: INR 0.88 (0.83-1.16); PROTIME(PATIENT) 12.2 SEC (12.0-15.0)
[2018-05-14] MEDS ORDERED: HEPARIN/DEXTROSE 25,000 UNIT/500 ML BAG ONE (08:14)
[2018-05-14] MEDS ORDERED: HEPARIN 10,000 UNIT/10 ML MDV (1,000 UNIT/ML) ONE ×2 (08:15→08:16)
[2018-05-14] MEDS ORDERED: LIDOCAINE 1% 300 MG/30 ML SDV ONE (08:15)
[2018-05-14] MEDS ORDERED: BUPIVACAINE 0.75% 10 ML SDV ONE (08:17)
[2018-05-14] MEDS ORDERED: IOPAMIDOL (ISOVUE-300) 100 ML BTL ONE (08:17)
--- NOTE | 2018-05-14 08:41 | PDANEPAE ---
ANE History of Present Illness ep lab ANE Past Medical History - Cardiovascular History Hx Hypertension: Yes Hx Arrhythmias: Yes Hx Chest Pain: No Hx Coronary Artery / Peripheral Vascular Disease: No Hx CHF / Valvular Disease: No Hx Palpitations: No Cardiovascular History Comment: pt to see cards 08/30 &15. a-fib, new onset. ECHO normal. A-fib stable on metoprolol. 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 - Neurologic History Hx Cerebrovascular Accident: No Hx Seizures: No Hx Dementia: No - Endocrine History Hx Diabetes: No Hypothyroid: No Hyperthyroid: No - Renal History Hx Renal Disorders: No - Liver History Hx Hepatic Disorders: No - Neurological & Psychiatric Hx Hx Neurological and Psychiatric Disorders: Yes Neurological / Psychiatric History Comment: depression - Cancer History Hx Cancer: Yes Cancer History Comment: skin cancer - Congenital Disorder History Hx Congenital Disorders: Yes Congenital History Comment: benign familial tremor - GI History Hx Gastrointestinal Disorders: Yes Gastrointestinal History Comment: reflux,barretts esophagus - Chronic Pain History Chronic Pain: Yes (R shoulder and neck spasms) - Surgical History Prior Surgeries: cervix opening sx. colonoscopy and EGD ANE Review of Systems Review of Systems: - Exercise capacity Exercise capacity: >=4 METS ANE Patient History - Allergies Allergies/Adverse Reactions: celecoxib [From Celebrex] Allergy (Verified 05/13/18 14:10) Dizzines/Nausea/Diarrhea clarithromycin [From Biaxin] Allergy (Verified 05/13/18 14:10) Rash codeine [Codeine] Allergy (Verified 05/13/18 14:10) Vomiting docusate [From Colace] Allergy (Verified 05/13/18 14:10) Rash ketamine Allergy (Verified 05/14/18 06:24) lactose Allergy (Verified 05/13/18 14:10) Diarrhea lansoprazole [From Prevacid] Allergy (Verified 05/13/18 14:10) Diarrhea legumes Allergy (Verified 05/13/18 14:10) Severe Gas & Loose Stool licorice Allergy (Verified 05/13/18 14:10) Rash loratadine [From Claritin] Allergy (Verified 05/13/18 14:10) Itching magnesium hydroxide [From Milk of Magnesia] Allergy (Verified 05/13/18 14:10) Rash magnesium hydroxide [From Milk of Magnesia] Allergy (Verified 05/13/18 14:10) Rash melatonin Allergy (Verified 05/13/18 14:10) Mood Lowers metformin [From Janumet] Allergy (Verified 05/13/18 14:10) Short Term Memory Loss midazolam [From Versed] Allergy (Verified 05/13/18 14:10) Decreases short-term memory for 2 weeks mint Allergy (Verified 05/13/18 14:10) Legthargy/Migraine/Dizziness nitrofurantoin [From Macrobid] Allergy (Verified 05/13/18 14:10) Vomiting NSAIDS (Non-Steroidal Anti-Inflamma Allergy (Verified 05/13/18 14:10) Other-Enter Comments olive oil Allergy (Verified 05/13/18 14:10) Increase IBS omeprazole [From Prilosec] Allergy (Verified 05/13/18 14:10) Diarrhea pollen extracts Allergy (Verified 05/13/18 14:10) senna [From Senokot] Allergy (Verified 05/13/18 14:10) Rash sitagliptin [From Janumet] Allergy (Verified 05/13/18 14:10) Short Term Memory Loss Sulfa (Sulfonamide Antibiotics) Allergy (Verified 05/13/18 14:10) Depression antacids Allergy (Uncoded 05/14/18 08:18) Any PPI Allergy (Uncoded 05/13/18 14:10) Diarrhea bee stings Allergy (Uncoded 05/13/18 14:10) Edema dust Allergy (Uncoded 05/13/18 14:10) insect bites Allergy (Uncoded 05/13/18 14:10) Edema/Itching Ket Allergy (Uncoded 05/14/18 06:26) - Home Medications Home Medications: Compounded T3/T4 5/20mcg 1 ea PO DAILY@08/20/17 [Last Taken 05/13/18 15:00] Diazepam [Valium 5 MG (*)] 5 mg PO DAILY PRN 08/20/17 [Last Taken Unknown] Glucosamine Sulfate [Glucosamine Sulfate 500 MG (*)] 500 mg PO DAILY@ [Last Taken 05/13/18 12:00] Herbals/Supplements -Info Only 1 ea PO DAILY 08/20/17 [Last Taken 05/13/18 07:00 ] Progesterone 150mg 150 mg PO HS 08/20/17 [Last Taken 09/13/17] Progesterone 50mg 50 mg PO DAILY@06 08/20/17 [Last Taken 09/13/17] Testosterone 1mg 1 mg PO DAILY@06 08/20/17 [Last Taken 09/11/17] Vilazodone HCl [Viibryd] 30 mg PO DAILY 08/20/17 [Last Taken 09/13/17] Zaleplon [Sonata] 10 mg PO HS PRN 08/20/17 [Last Taken Unknown] buPROPion SR [Wellbutrin 150mg SR (*)] 150 mg PO DAILY 08/20/17 [Last Taken ] Estradiol [Vivelle-Dot 0.05MG (*)] 0.05 mg TD TuFr@0800 09/13/17 [Last Taken 22:00] Metoprolol Succinate Xr [Toprol Xl 25 mg (*)] 37.5 mg PO HS 09/13/17 [Last Taken Unknown] Pentosan Polysulfate Sodium [ELMIRON] 100 mg PO DAILY06 09/13/17 [Last Taken ] Triazolam [Halcion 0.25MG (*)] 0.25 mg PO HS 09/13/17 [Last Taken Unknown] Cyclobenzaprine [Flexeril 10 MG (*)] 10 mg PO TID PRN 05/09/18 [Last Taken Unknown] Ibuprofen 20% Cream 1 cyrus TP DAILY PRN 05/09/18 [Last Taken 05/14/18 06:00] Ibuprofen [Motrin (*)] 600 mg PO HS 05/09/18 [Last Taken 05/11/18 22:00] Rivaroxaban [Xarelto 10mg (*)] 20 mg PO DAILY18 05/09/18 [Last Taken 05/11/18 17 :00] - NPO status NPO Status: no food or drink >8 hours - Anes Hx Anes 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
[2018-05-14] MEDS ORDERED: PROPOFOL/EMULSION 500 MG/50 ML BOTTLE IV ONE ×5 (08:48→11:51)
[2018-05-14] MEDS ORDERED: REMIFENTANIL HCL 1 MG VIAL ONE ×5 (08:48→11:51)
[2018-05-14] MEDS ORDERED: PROPOFOL 200 MG/20 ML VIAL ONE (08:48)
[2018-05-14] MEDS ORDERED: SUCCINYLCHOLINE CHLORIDE 200 MG/10 ML SYR IVP ONE (08:58)
[2018-05-14] MEDS ORDERED: ROCURONIUM 50 MG/5 ML VIAL ONE (08:58)
[2018-05-14] MEDS ORDERED: ePHEDrine SULFATE 25 MG/5 ML SYR ONE (10:35)
[2018-05-14] MEDS ORDERED: ATROPINE SULFATE 1 MG/ML VIAL ONE ×2 (10:36)
[2018-05-14] MEDS ORDERED: ONDANSETRON 4 MG/2 ML VIAL ONE ×2 (12:08→14:54)
[2018-05-14] MEDS ORDERED: SUGAMMADEX SODIUM 200 MG/2 ML VIAL IVP ONE (12:08)
[2018-05-14] MEDS ORDERED: PROTAMINE SULFATE 50 MG/5 ML VIAL IVP ONE (12:11)
--- NOTE | 2018-05-14 12:42 | EPPROC ---
Electrophysiology Procedure Note: ELECTROPHYSIOLOGIC STUDY AND BALLOON-CATHETER MEDIATED CRYOABLATION FOR PAROXYSMAL ATRIAL FIBRILLATION AND ATRIAL FLUTTER Procedures performed: 00023-39 EP evaluation with RA/RV/LA pace/record, with arrhythmia induction 69488-51 EP evaluation with RA/RV pace record, insert/reposition catheter, with arrhythmia induction 52820 Atrial fibrillation ablation Second arrhythmia Intracardiac echocardiogram Transseptal puncture Fluoroscopy INDICATION: Paroxysmal atrial fibrillation Atrial flutter PROCEDURE: The patient arrived in the Electrophysiology Laboratory in the fasting state. The right groin, left groin and right infraclavicular area were prepped and draped in the usual sterile fashion. Anesthesiologist administered general anesthesia Dr. Urszula Metcalf . All catheters were placed percutaneously using the Seldinger technique and advanced into position under fluoroscopic guidance. One #7 Scottish deflectable octapolar electrode catheter was placed in the His-bundle position via the left femoral vein (2mm spacing, IVC electrode for unipolar recordings). This catheter was placed in the coronary sinus after transseptal puncture and later placed in the SVC-R subclavian vein junction to pace the right phrenic nerve during right pulmonary vein ablation. One #8 Scottish AcuNaV ultrasound catheter was placed in the left femoral vein and advanced into the right atrium. One #4 Scottish sheath was inserted into the left femoral artery via percutaneous technique and used for continuous arterial blood pressure monitoring and intermittent ACT determination. Programmed stimulation was performed from the right atrium, left atrium (CS) and right ventricle. Intracardiac echo evaluation of the left atrium and pulmonary veins was performed. Baseline ACT was drawn and heparin bolus was administered and heparin drip was started prior to transseptal puncture. ACT was checked every 15 minutes and maintained in the range of 350-400 seconds. One 14Fr short sheath was placed in the right femoral vein. One 8Fr SL1 sheath was advanced into the right atrium via the 14Fr short sheath. Transseptal puncture was performed under intracardiac ultrasound, fluoroscopic and hemodynamic guidance placing the sheath into the left atrium. [place] RF needle ( C0 curve) was used. The mean left atrial pressure was 10 mmHg. 3D map of left atrial and pulmonary veins was performed using PentaRay catheter. LSPV, LIPV, RSPV, RMPV, RIPV. Atrial fibrillation was present at beginning of procedure. Cardioversion x 2 attempted, but there was ERAF. The SL1 sheath was exchanged for a Medtronic Flexcath sheath using an Amplatz stiff guide wire. A 28 mm Cryoballoon catheter with a 20 mm Achieve catheter was placed via the sheath into the left atrium. Intracardiac ultrasound and PV angiograms were used to assist in placing the mapping catheter at the antrum of the pulmonary veins. All pulmonary veins were isolated successfully using cryoballoon ablation using freeze/thaw/freeze cycles at 2-3-minute intervals, with good [id number] of isolation. Coumadin ridge/Ligament of Humberto region was ablated. Pre and post pulmonary vein recordings were measured on the spiral Achieve catheter to ensure complete pulmonary vein isolation. During the right-sided ablation, phrenic nerve pacing was performed to assess the phrenic nerve strength ( manually and with ICE visualization of liver movement during phrenic capture) and the phrenic nerve was intact throughout the right-sided ablation and at the end of the procedure. Upon isolation of LSPV, at first freeze, AFIB terminated. An esophageal temperature probe (12 electrode, Circa) was placed by the anesthesiologist at the beginning of the procedure. Esophageal temperature was monitored continuously. Cryoapplications 8 total cryoablation time 1141s. Following this sheath was withdrawn into RA and changed to Agilis sheath. 8mm Carto catheter and 3D mapping were used for CT isthmus ablation, bidirectional conduction block was achieved. ICE imaging post ablation was consistent with pre ablation imaging with no changes noted, moreover there was no left atrial/left ventricular thrombus and no pericardial effusion. The catheters were withdrawn. Protamine was given. The sheaths were removed and subcutaneous pursestring suture and manual pressure was used for hemostasis. The patient was recovered from anesthesia. There were no complications. The patient was arousable and moving all four extremities at the end of the procedure. CONCLUSIONS: 1. Paroxysmal atrial fibrillation. 2. Successful pulmonary vein isolation procedure (left and right pulmonary vein antrum) using cryoballoon ablation. 3. Atrial flutter. RF ablation achieved bidirectional conduction block across cavotricupsid isthmus. 4. No apparent complications. Patient Problems: Problems Problem Status Onset Osteoarthritis of right hip Acute
[2018-05-14] MEDS ORDERED: CYCLOBENZAPRINE 10 MG TAB PO PRN (12:43)
[2018-05-14] MEDS ORDERED: DIAZEPAM 5 MG TAB PO PRN (12:43)
[2018-05-14] MEDS ORDERED: NALOXONE HCL 0.4 MG/ML INJ IVP PRN (12:50)
[2018-05-14] MEDS ORDERED: ALBUTEROL 3 ML DEYVIAL IH PRN (12:50)
[2018-05-14] MEDS ORDERED: fentaNYL 100 MCG/2 ML INJ IVP PRN (12:50)
[2018-05-14] MEDS: HYDROCODONE/APAP 5/325 TAB PO PRN ×2 (13:48→21:06)
[2018-05-14] MEDS: IBUPROFEN TP PRN ×2 (13:49→18:21)
[2018-05-14] MEDS: [UNRECOGNIZED DRUG - MIXTURE] PO SCH (14:38)
[2018-05-14] MEDS: TESTOSTERONE 1 MG PO SCH (14:39)
[2018-05-14] MEDS: VILAZODONE HCL PO SCH (14:40)
[2018-05-14] MEDS: Pentosan Polysulfate Sodium [Elmiron] 100 MG PO SCH (14:42)
[2018-05-14] MEDS ORDERED: ONDANSETRON 4 MG/2 ML VIAL IVP PRN (14:54)
[2018-05-14] MEDS: IBUPROFEN 200 MG TAB PO PRN (15:45)
[2018-05-14] MEDS: SUCRALFATE 1 GM TAB PO SCH ×2 (17:18→21:05)
[2018-05-14] MEDS ORDERED: RIVAROXABAN 10 MG TAB PO SCH (18:00)
[2018-05-14] MEDS ORDERED: IBUPROFEN 600 MG TAB PO SCH (21:00)
[2018-05-14] MEDS ORDERED: PROGESTERONE 150 MG PO SCH (21:00)
[2018-05-14] MEDS ORDERED: TRIAZOLAM 0.25 MG TAB PO SCH (21:00)
[2018-05-14] MEDS ORDERED: METOPROLOL SUCCINATE XR 25 MG TAB PO SCH (21:00)
[2018-05-15] MEDS: HYDROCODONE/APAP 5/325 TAB PO PRN ×2 (03:08→09:34)
[2018-05-15 05:24] LABS: PLATELET COUNT 125 10^3/uL (150-400)
[2018-05-15] MEDS ORDERED: PROGESTERONE PO SCH (06:00)
[2018-05-15] MEDS: Pentosan Polysulfate Sodium [Elmiron] 100 MG PO SCH (06:25)
[2018-05-15] MEDS: TESTOSTERONE 1 MG PO SCH (06:25)
[2018-05-15] MEDS: [UNRECOGNIZED DRUG - MIXTURE] PO SCH (06:25)
[2018-05-15] MEDS: IBUPROFEN 200 MG TAB PO PRN (06:27)
[2018-05-15] MEDS: SUCRALFATE 1 GM TAB PO SCH ×2 (06:30→12:35)
[2018-05-15] MEDS: IBUPROFEN TP PRN (06:31)
[2018-05-15] MEDS ORDERED: buPROPion SR 150 MG TAB PO SCH (09:00)
[2018-05-15] MEDS ORDERED: buPROPion XL 150 MG TAB PO SCH (09:00)
[2018-05-15] MEDS: VILAZODONE HCL PO SCH (09:34)
[2018-05-15] MEDS ORDERED: GLUCOSAMINE SULF 500 MG CAP PO SCH (12:00)
[2018-05-15 12:34] VITALS: BP 106/51
--- NOTE | 2018-05-15 13:11 | CPEKG ---
Test Reason : OPEN Blood Pressure : / mmHG Vent. Rate : 114 BPM Atrial Rate : 115 BPM P-R Int : 063 ms QRS Dur : 072 ms QT Int : 355 ms P-R-T Axes : 000 053 020 degrees QTc Int : 489 ms Atrial fibrillation Ventricular premature complex Anteroseptal infarct, old Borderline repol abnormality, diffuse leads Similar ECG noted in the past Confirmed by Tone Wyman ([id number]) on 05/15/2018 1:11:12 PM Referred By: Confirmed By:Tone Wyman
--- NOTE | 2018-05-15 13:16 | CPEKG ---
Test Reason : OPEN Blood Pressure : / mmHG Vent. Rate : 072 BPM Atrial Rate : 072 BPM P-R Int : 197 ms QRS Dur : 081 ms QT Int : 436 ms P-R-T Axes : 076 060 084 degrees QTc Int : 478 ms Sinus rhythm Anteroseptal infarct, age indeterminate Normal sinus rhythm has replaced atrial fibrillation as noted on prior ECG Confirmed by Tone Wyman ([id number]) on 05/15/2018 1:15:45 PM Referred By: Confirmed By:Tone Wyman
--- NOTE | 2018-05-15 13:19 | CPEKG ---
Test Reason : OPEN Blood Pressure : / mmHG Vent. Rate : 066 BPM Atrial Rate : 066 BPM P-R Int : 195 ms QRS Dur : 070 ms QT Int : 493 ms P-R-T Axes : 052 043 078 degrees QTc Int : 517 ms Sinus rhythm Anteroseptal infarct, age indeterminate Prolonged QT interval QTc prolongation is new in comparison to prior Confirmed by Tone Wyman [id number]) on 05/15/2018 1:18:45 PM Referred By: Confirmed By:Tone Wyman
--- NOTE | 2018-05-15 13:46 | GDS ---
[f rep st] DISCHARGE SUMMARY ADMISSION DIAGNOSES: 1. Paroxysmal atrial fibrillation. 2. Paroxysmal atrial flutter. 3. Hypothyroidism. 4. Migraines. 5. Gastroesophageal reflux disease. 6. Obstructive sleep apnea. DISCHARGE DIAGNOSES: 1. Paroxysmal atrial fibrillation. 2. Paroxysmal atrial flutter. 3. Status post cryo balloon ablation of the pulmonary veins for atrial fibrillation. 4. Status post atrial flutter ablation. 5. Hypothyroidism. 6. Migraines. 7. Gastroesophageal reflux disease. 8. Obstructive sleep apnea. PROCEDURES PERFORMED DURING HOSPITALIZATION: 1. Electrocardiogram. 2. EP study. 3. Pulmonary vein isolation procedure using cryo balloon ablation for atrial fibrillation. 4. RF ablation. A bidirectional conduction block across carbo tricuspid isthmus. 5. Echocardiogram. BRIEF HISTORY: Please see H and P. Briefly, Dr. Gore is a 62-year-old female with history of paro xysmal atrial fibrillation. She feels fatigue on significant amount of beta-blockers. She also had been tried on antiarrhythmic therapy, with adverse reactions. She did see Dr. Rooney who discussed with her potentially continue on long-term anti arrhythmics or undergoing ablation procedure. She decide d to undergo ablation. HOSPITAL COURSE: Patient was admitted through CVC, prepped for procedure, and taken to the electroph ysiology lab. There, an elective EP procedure was done, paroxysmal atrial fibrillation was identifie d. Also, atrial flutter was noted. At that point, cryo balloon isolation by pulmonary vein isolatio n procedure was done for atrial fibrillation and RF ablation was done to stop bidirectional conductio n block across the carbo tricuspid isthmus. No complications. Patient was taken to the ICU for over night observation. She was noted overnight to have some mildly low blood pressures, with one oint sy stolic in the 60s, but with gentle hydration, blood pressure returned to normal. She denies of any s ymptoms during her hospitalization suggesting ischemia. She did report some mild headache, which wer e similar of migraines in the past, in which she took her preventative Valium sublingual, and symptom s subsided. This morning, her blood pressure is within normal limits. She has been up and walking o n the unit without symptoms. Continuous director of cardiac rehabilitation has noted that she has maintained sinus rhyt hm with no arrhythmias or pauses noted. She denies of any chest pressure, pain or symptoms suggestin g ischemia. Reporting no palpitations. Reports no lightheadedness, near-syncope or syncopal events. PHYSICAL EXAMINATION: Done today. GENERAL APPEARANCE: Thin, well-groomed female. She is alert and oriented to person, place , time, and situation. Appears to be in no acute distress. VITAL SIGNS: Current vital signs are blo od pressure 106/51, heart rate of 73, sinus rhythm on the monitor, respirations 20. Saturating 97% o n room air. Temperature 36.8 degrees Celsius. HEENT: Head is normocephalic. Lips and tongue are p ink and moist with no signs of cyanosis. Conjunctivae pink. NECK: Trachea is midline, +2 carotid p ulses bilateral. No auscultated bruits, no jugular vein distention. RESPIRATORY: Lungs are clear t o auscultation. No rhonchi, rales or wheezes. No accessory muscle use. No intercostal muscle retra ction noted. CARDIAC: Regular rate, regular rhythm, S1, S2, no S3, S4, gallops, rubs or murmurs not ed. ABDOMEN: Soft, nontender, bowel sounds x4 quadrants. No organomegaly. No palpable masses. SK IN: [place], warm, dry, no cyanosis, no clubbing, no peripheral edema. VASCULAR: +2 carotids bilatera l, +2 radials bilateral, +2 dorsal pedal and posterior tibial pulses bilateral. Catheter insertion s ites, bilateral groin sites, with no redness, swelling, drainage, ecchymosis, or hematoma. No auscul tated bruit noted over each site, venous suture loop removed by ICU nurse bilateral intact. LABORATORY STUDIES: Laboratory studies drawn today show WBC of 5.33, hemoglobin 10.6, hematocrit 32. 3, platelet count 125. Sodium 138, potassium 4.0, chloride 108, CO2 24, BUN 13, creatinine 0.8, gluc ose 101, calcium 8.3. Troponin of 4.390, noted. Expected elevated troponin level or cardiac markers after ablation procedure. PROCEDURES: Electrophysiology, cryo balloon ablation for atrial fibrillation, and RF catheter for A- flutter procedures as mentioned above. Morning electrocardiogram showed sinus rhythm, normal axis, Q-wave noted in V1, no other significant ST or T-wave abnormality. Preliminary echocardiogram done on May 15, 2018, showing normal LV systolic function. No wall mot ion abnormalities. No fat pad with no pericardial effusion. DISCHARGE DISPOSITION: Patient will be discharged home in stable condition. She is under activity r estrictions of not lifting more than 10 pounds for the next week and no strenuous activities for the next 2 weeks. DISCHARGE MEDICATIONS: Please see discharge medication reconciliation sheet, she will remain on her current home dosages of metoprolol, she has been restarted on Xarelto. Due to patient unable to take proton pump inhibitors, she will take Carafate a.c. and hs for the next 6 weeks. No change in the r est of her home medications. DISCHARGE INSTRUCTIONS: Post electrophysiology/atrial fibrillation/A flutter ablation. Discharge in structions went over with the patient including activity restrictions, bleeding precautions, monitori ng for signs of infection, and medication compliancy. At the time of discharge, patient verbalizes a ll instructions and has no questions or concerns. She has a followup appointment set up with Dr. Rooney in 2 weeks` time. She has been told on upon discharge, if any questions or concerns come up post yaquelin johnson, she is to notify our office or return to the hospital. Total time spent on discharge greater than 30 minutes. /[id number]/MODL
--- NOTE | 2018-05-15 15:55 | ECHO ---
[email or web address] [address] [address] Main: [phone] Fax: Transthoracic Echocardiogram Name: PHUONG PACHECO MR#: [id number] Study Date: 05/15/2018 Study Time: 08:29 AM Date of : 1955 Age: 62 year(s) Height: 167.6 cm (66 in.) Weight: 69.85 kg (154 lb.) BSA: 1.79 m2 Gender: Female Examination: Echo Indication: F/U post EP study Image Quality: Contrast: Requested by: Adelso Rooney BP: 90 mmHg/55 mmHg Heart Rate: Rhythm: Indication: F/U post EP study Procedure Staff Printer Machine: Marti Pride RDCS Reading Physician: Enrrique Oneil MD Requesting Provider: Conclusions: Normal size left ventricle. The ejection fraction is estimated to be 65-70 %. No regional wall motion abnormality. Normal diastolic LV function. The left atrium is mildly dilated. Transseptal puncture noted.. Mild mitral valve regurgitation is present. Trivial aortic valve regurgitation. Mild tricuspid regurgitation is present. The pulmonary artery pressure is normal. Trace anterior pericardial effusion vs. fat pad.. No significant change compared to 08/31/2017. Measurements: Chambers Valvular Assessment AV/MV Valvular Assessment TV/PV Normal Normal Normal Name Value Range Name Value Range Name Value Range Ao Nelsy (MM): 2.9 cm (2.2 cm-3.7 AV Vmax: 1.42 m/s (1 m/s-1.7 TR Vmax: 2.31 mm/s ( - ) cm) m/s) TR PGmax: 21 mmHg ( - ) IVSd (2D): 0.7 cm (0.6 cm-1.1 AV meanP mmHg ( - ) syst. PAP: 26 mmHg ( - ) cm) MV E Vmax: 0.68 m/s ( - ) LVDd (2D): 4.5 cm (3.9 cm-5.3 MV A Vmax: 0.43 m/s ( - ) cm) MV E/A: 1.58 ( - ) LVDs (2D): 3.0 cm (2.1 cm-4 cm) LVPWd (2D): 0.9 cm ( - ) LVEF (MOD4): 72 % (>=55 %) EF Range: 65-70 % Continued Measurements: Patient: PHUONG PACHECO Study Date: 05/15/2018 Page 1 of 2 08:29 AM Chambers Valvular Assessment AV/MV Valvular Assessment TV/PV Name Value Name Value Name Value LADs: 4.1 cm MV E' Septal: 0.07 m/s CVP (est.): 5 mmHg LADs Lon.6 cm MV E/E' Septal: 9.60 LA Area: 22.3 cm2 MV E/E' Lateral: 7.00 Additional Vessels Name Value Ao Ascendin.7 cm Findings: Left Ventricle: Normal size left ventricle. No LV hypertrophy. Normal global systolic LV function. The ejection fraction is estimated to be 65-70 %. No regional wall motion abnormality. Normal diastolic LV function. Right Ventricle: Normal size right ventricle. Left Atrium: The left atrium is mildly dilated. Transseptal puncture noted.. Right Atrium: The right atrium is normal in size. Mitral Valve: The mitral valve is normal in appearance and function. Mild mitral valve regurgitation is present. Aortic Valve: The aortic valve is normal in appearance and function. The aortic valve is tri-leaflet. Trivial aortic valve regurgitation. Tricuspid Valve: The tricuspid valve is normal in appearance and function. Mild tricuspid regurgitation is present. The pulmonary artery pressure is normal. Pulmonic Valve: The pulmonic valve is normal in appearance and function. Aorta: The aorta is normal. Pericardium: Trace anterior pericardial effusion vs. fat pad.. (No Signature Object) Patient: PHUONG PACHECO Study Date: 05/15/2018 Page 2 of 2 08:29 AM [id number]
[2018-05-17] MEDS ORDERED: ESTRADIOL VIVELLE 0.05 MG PATCH TD SCH (08:00)
== END 2018-05-15 12:57 | disposition home or self-care (01) ==
LOC: FCATH 07:14 → F2N 12:23
PROVIDERS: ADMIT Internal Medicine Cardiovascular Disease; ATTEND Internal Medicine Cardiovascular Disease
PROC: 02563ZZ Destruction of Right Atrium, Percutaneous Approach (ICD-10-PCS; principal; 2018-05-14)
DX: I48.0 Paroxysmal atrial fibrillation (principal); I48.92 Unspecified atrial flutter; K21.9 Gastro-esophageal reflux disease without esophagitis; G47.33 Obstructive sleep apnea (adult) (pediatric)
CPT/HCPCS: 92960; 93005; 93306; 93312; 93613; 93655; 93656; 93662; C1893; G0378; C1730; C1731; C1732; C1733; C1759; C1766; J0330; J0461; J1644; J2405; J2704; J2720; Q9967